=== PATIENT | female | born 1960 | race Caucasian/White ===

== ENCOUNTER 2016-08-18 06:02 | Day surgery (SDC) | payer BC, MEDICARE ==
--- NOTE | 2016-08-17 19:37 | HISTORY AND PHYSICAL ---
ADMITTED: 08/18/2016 HISTORY OF PRESENT ILLNESS: The patient is a 55-year-old female who presents with chief complaint of painful hammertoe deformities of her second, third, and fourth toe, left foot. States that it had progressively gotten worse. Says her diabetes is fairly managed and she is afraid that with these hammertoes, as they get progressive that she develops sores and does not want to develop any type of open ulcerations, which could lead to amputation. MEDICAL/SURGICAL HISTORY: Past medical history: Includes history of circulatory problems, insulin resistant diabetes, headaches, foot and leg cramps, hypertension and GERD. Surgical history: Many of note; bilateral left and right foot surgery carried out by myself; hernia repair. PRIMARY CARE PROVIDER: Blayne Mcintosh MD MEDICATIONS: 1. Alprazolam 2 mg tablet 1 by mouth daily. 2. Chlorthalidone 25 mg tablet 1 by mouth daily. 3. Duloxetine 30 mg capsule delayed-release 1 by mouth daily. 4. GaviLyte N 420 g oral solution 2 tablespoons by oral route daily. 5. Hydrochlorothiazide 25 mg tablet 1 by mouth daily. 6. Hydrocodone 5/acetaminophen 325 one q.6 hours p.r.n. pain. 7. Liothyronine 5 mcg tablets 1 by mouth daily. 8. Lovastatin 20 mg tablet 1 by mouth daily. 9. Metformin 1000 mg tablet 1 by mouth t.i.d. 10. Omeprazole 20 mg capsule delayed-release 1 by mouth daily. 11. Potassium chloride ER 10 mEq tablet 1 by mouth daily. 12. Spironolactone 100 mg tablet 1 by mouth daily. 13. Tramadol 50 mg tablet 1 by mouth t.i.d. for pain. ALLERGIES: 1. NO KNOWN DRUG OR FOOD ALLERGIES. SOCIAL HISTORY: She is disabled, with children. Does not smoke or drink. Employed for [employer]. FAMILY HISTORY: Diabetes maternal side. REVIEW OF SYSTEMS: Ten-point review of systems positive for insulin resistant diabetes, circulatory problems and psychosis of unknown nature. PHYSICAL EXAMINATION: GENERAL: The patient is alert and oriented x3. HEENT: PERRLA. Normocephalic. HEART: Regular rate and rhythm. Regular S1 and S2, no murmurs or gallops. LUNGS: Clear to auscultation. No wheezing, rhonchi, or rales. ABDOMEN: Normal tones. No palpable masses in all 4 quadrants. EXTREMITIES: Lower extremities/Vascular: DP and PT pulses are palpable. There is noted pain with palpation of the second, third, and fourth digit, left foot. There are noted contractures in the sagittal and transverse planes. She has difficulty with range of motion. Stance reveals a collapsed medial column and valgus heels. LAB/IMAGING: Imaging: Taken on an OrthoScanned weightbearing platform revealed contractures, both the sagittal and transverse planes. Also had a SensiLase report carried out and read by Dr. Prieto Willis, which revealed normal perfusion and good chance of wound healing from an arterial standpoint. That SensiLase test was done back in early 06/2016. IMPRESSION: 1. Hammertoe deformity, second, third, and fourth toe, left foot. PLAN: The patient is scheduled for outpatient surgery, [facility] for arthroplasties on day of surgery; 08/18/2016. There are no contraindications to surgery at this time.
[~2016-08-18] VITALS: Ht 167.6 cm; Wt 101.6 kg
[~2016-08-18 06:02] MED LIST: ALPRAZOLAM2 MG PO; ASPIRIN ADULT L81 M1 PO; CHLORTHALIDONE25 MG PO; CYMBALTA30 MG PO; FOLIC ACID1 MG PO; LIOTHYRONINE SO5 MCG PO; LOVASTATIN10 M1 PO; METFORMIN HCL1000 MG PO; MIRALAX EQUIVAL17 GM PO; MULTIPLE VITAMIN PO; OMEPRAZOLE20 M1 PO; PROBIOTI1 PO; VITAMIN B COMPLE1 PO; VITAMIN D-31000 UNIT PO
[2016-08-18] MEDS ORDERED: ULTRAM EQIVALEN50 MG PO (06:23)
[2016-08-18] MEDS ORDERED: KLOR-CON 1010 MEQ PO (06:23)
--- NOTE | 2016-08-18 06:49 | NUR ---
PATIENT ASSESSMENT AND MED/ALLERGY LIST COMPLETE. VITALS STABLE. BGL 159. IV STARTED IN L FOREARM WITH 1 ATTEMPT. LR INFUSING ON PUMP. EKG AND LABS OBTAINED. PREOP INSTRUCTIONS DISCUSSED. QUESTIONS ENCOURAGED AND ANSWERED BY RN. WILL CONTINUE TO MONITOR.
[2016-08-18] MEDS ORDERED: PERCOCET1 TA4 PO (08:57)
--- NOTE | 2016-08-18 08:58 | Provider's Discharge Care Plan ---
Problem, Goal, Plan Problem List 1. Other hammer toe(s) (acquired), left foot Goals: Improve function Instructions: Follow up as directed
--- NOTE | 2016-08-18 08:58 | Provider's Discharge Care Plan ---
Problem, Goal, Plan Problem List 1. Other hammer toe(s) (acquired), left foot Goals: Improve function Instructions: Follow up as directed
--- NOTE | 2016-08-18 09:05 | NUR ---
rec'd from OR; SPONT RESP. HOB AND FOB ELEVATED 30 DEGREES.L FOOT DSG= SCANT PINK DRAINAGE. FOOT ELEVATED ON 2 PILLOWS. SURGEON NOTIFIED OF DRAINAGE.
[2016-08-18] MEDS ORDERED: HYDROMORPHONE HC2 MG PO (09:06)
--- NOTE | 2016-08-18 09:20 | NUR ---
SLEEPINT QUIETLY. INSTRUCTED TO DB. CMS=GOOD. FSBS ON ADMIT TO PACU = 166. ANESTHESIA NOTIFIED; NO FURTHER ORDERS.
--- NOTE | 2016-08-18 09:38 | NUR ---
POST OP XRAYS BEING TAKEN; TOLERATED WELL.
--- NOTE | 2016-08-18 09:58 | NUR ---
PATIENT BACK FROM SURGERY. VITALS STABLE. OUTTER DRESSINGS CLEAN, DRY AND INTACT, WITH SCANT DRAINAGE ON INNER GAUZE. TOES PINK AND WARM. WILL CONTINUE TO MONITOR.
--- NOTE | 2016-08-18 10:46 | NUR ---
PATIENT TOLERATING PO INTAKE WITHOUT NAUSEA. DENIES PAIN AT THIS TIME. WILL CONTINUE TO MONITOR.
[2016-08-18 11:25] VITALS: BP 107/63
--- NOTE | 2016-08-18 11:49 | DIAGNOSTIC IMAGING REPORT ---
PROCEDURE: XR FOOT 3 VIEWS - LEFT INDICATION: POST-OP- IN PACU TECHNIQUE: Three views. COMPARISON: Left foot films 01/27/2011 FINDINGS: Post bunionectomy. Anatomic alignment. IMPRESSION: 1. Post bunionectomy. Anatomic alignment.
--- NOTE | 2016-08-18 12:00 | NUR ---
PATIENT DEPARTED SCU AT 1155. VITALS REMAIN STABLE. TOES PINK AND WARM, WITH FREE MOVEMENT. PATIENT STATES PAIN IS WELL CONTROLLED AT 3/10 PAIN. IV DISCONTINUED. POST OP SHOE APPLIED. DISCHARGE INSTRUCTIONS DISCUSSED. QUESTIONS ENCOURAGED AND ANSWERED BY RN.
--- NOTE | 2016-08-18 20:01 | OPERATIVE REPORT ---
DATE OF SURGERY: 08/18/2016 SURGEON: Mono Travis DPM PREOPERATIVE DIAGNOSIS: 1. Hammertoe deformity, second, third, and fourth digit, left foot POSTOPERATIVE DIAGNOSIS: 1. Hammertoe deformity, second, third, and fourth digit, left foot PROCEDURE PERFORMED: 1. Arthroplasties of the second, third, and fourth digit, left foot HEMOSTASIS: Achieved by pneumatic ankle tourniquet inflated 250 mmHg pressure. TOURNIQUET TIME: Total tourniquet time: Forty eight minutes. MATERIALS: 3-0 and 4-0 Polysorb, 4-0 Surgipro. INJECTABLES: Injected 20 mL of 0.5% bupivacaine plain. COMPLICATIONS: None. CONDITION: The patient tolerated anesthesia, procedure well. INDICATIONS: The patient is a 55-year-old female with the chief complaint of chronic and painful hammertoe deformities. States she gets calluses on the top of her toes and would like to have that addressed. States she is a diabetic and does not want to have any type of open ulcerations. She has taken a proactive approach. I did have her get a SensiLase prior to the procedure to ensure optimum healing from an arterial standpoint, which results were indicative of that fact. There are no contraindications to surgery at this time. SURGICAL TECHNIQUE: The patient was brought to the operating room, placed on operating room table in a supine position. At this time, a general anesthetic was administered and pneumatic tourniquet was then placed above the left ankle. Left lower extremity was prepped and draped in the normal sterile fashion. An intraoperative pause was carried out for positive identification, proper limb, consent form verified and confirmed, as well as administration of the 2 g of IV cefazolin were identified as being delivered. An Esmarch bandage was then utilized to exsanguinate the limb, tourniquet was then inflated. Attention was then directed to procedure #1. Arthroplasty, second digit, left foot: A linear incision was made extending from the midshaft of the proximal phalanx, extending distally across the DIPJ of the second digit. Skin hooks were then employed as the skin edges were then undermined from distal to proximal to the PIPJ. The long extensor tendon was then transected at this level and reflected proximally. The head of the intermediate phalanx was excised, contoured to a smooth edge with the hand-held rasp. The extensor tendon was then reflected distally back proximally to expose the proximal interphalangeal joint, collateral ligaments were released and the head of the proximal phalanx was excised. Contoured to a smooth edge. Area was flushed. Toe was then brought up to a rectus position in the sagittal and transverse plane with the long extensor tendon reapproximated in a figure-of- eight fashion at the DIPJ level. Subcutaneous reapproximated with the 4-0 Polysorb and skin edges were reapproximated in running fashion with 4-0 Surgipro. Attention was directed to procedure #2. Arthroplasty, third digit, left foot: Same procedure was carried out and procedure #1 was carried out in procedure #2. No additions, deletions. Attention was directed to procedure #3. Arthroplasty, fourth digit: At this time, a linear incision was made overlying midshaft of the proximal phalanx extending to midshaft of the intermediate phalanx. Skin hooks were employed with the skin edges undermined. Long extensor tendon was transected at the proximal interphalangeal joint. Collateral ligaments were released. Head of the proximal phalanx was then excised with the sagittal saw, contoured to a smooth edge. The area was flushed. Long extensor tendon was then reapproximated in a [id number] fashion with 3-0 Polysorb, subcutaneous with 4-0 Polysorb and skin edges were reapproximated in running fashion with 4-0 Surgipro. Toes were rectus, both sagittal and transverse planes digits 2, 3, and 4. The toes were then locally anesthetized. The tourniquet was released with reactive hyperemia and good digital perfusion to all digits. A light compressive dressing was applied. The patient tolerated anesthesia, procedure well and left the room with vital signs stable. While in recovery, written explicit instructions dispensed. She is to utilize a fracture shoe. Prognosis is guarded. She will be discharged home in stable condition.
[2016-10-19] MEDS ORDERED: JARDIANCE25 MG PO (14:14)
== END 2016-08-18 11:55 | disposition home or self-care (01) ==
LOC: OR SRH 06:02 → SCU SRH 06:09 → OR SRH 07:30
PROVIDERS: Podiatrist
PROC: 0QBR0ZZ Excision of Left Toe Phalanx, Open Approach (ICD-10-PCS; principal; 2016-08-18 07:30)
DX: M20.42 Other hammer toe(s) (acquired), left foot (principal); E11.9 Type 2 diabetes mellitus without complications; Z79.84 Long term (current) use of oral hypoglycemic drugs; I10 Essential (primary) hypertension

== ENCOUNTER 2016-10-20 06:13 | Day surgery (SDC) | payer BC, MEDICARE ==
--- NOTE | 2016-10-19 08:54 | HISTORY AND PHYSICAL ---
ADMITTED: 10/20/2016 HISTORY OF PRESENT ILLNESS: The patient is a 56-year-old female with a chief complaint of painful hammertoe deformities of her right foot. She successfully carried out arthroplasties on her left foot on 08/18/2016 without complications. She has elected to proceed with surgical of her right foot. MEDICAL/SURGICAL HISTORY: Her past medical history includes a history of circulatory problems, insulin resistant diabetes, headaches, foot and leg cramps, hypertension, and GERD. Surgical history: Bilateral left and right foot surgery carried out by myself with the recent one on 08/18/2016. Hernia repair. PRIMARY CARE PHYSICIAN: Blayne Mcintosh MD. MEDICATIONS: 1. Alprazolam 2 mg tab 1 by mouth daily. 2. Chlorthalidone 25 mg tablet 1 by mouth daily. 3. Duloxetine 30 mg delayed-release tablet 1 by mouth daily. 4. GaviLyte-N 420 gram oral solution 2 tablespoons by oral route daily. 5. Hydrochlorothiazide 25 mg tab 1 by mouth daily. 6. Hydrocodone 5/acetaminophen 325 one q.6 hours p.r.n. pain. 7. Liothyronine 5 mcg tablets 1 by mouth daily. 8. Lovastatin 20 mg tablet 1 by mouth daily. 9. Metformin 1000 mg tab 1 by mouth t.i.d. 10. Omeprazole 20 mg tablet delayed-release 1 by mouth daily. 11. Potassium chloride ER 10 mEq 1 by mouth daily. 12. Spironolactone 100 mg tablet 1 by mouth daily. 13. Tramadol 50 mg tab 1 by mouth daily. ALLERGIES: 1. NO KNOWN DRUG OR FOOD ALLERGIES. SOCIAL HISTORY: She is disabled. with 2 children, does not smoke or drink. Employed for [employer]. FAMILY HISTORY: Diabetes maternal side. REVIEW OF SYSTEMS: A 10-point review of systems positive for insulin resistant diabetes, circular problems, and psychoses of unknown nature. PHYSICAL EXAMINATION: GENERAL: The patient is alert, oriented x3. HEENT: PERRLA. Normocephalic. HEART: Regular rate and rhythm. Regular S1 and S2. No murmurs, or gallops. LUNGS: Clear to auscultation. No wheezing, rhonchi, or rales. ABDOMEN: Normal tones, no palpable masses in all 5 quadrants. EXTREMITIES: Lower extremity, DP and PT pulses are palpable. Skin texture and turgor within normal limits. Digits 2, 3, and 4 the right foot are contracted in both the sagittal and transverse planes. They are pliable and easily reduced. Stance reveals a slight collapse of the medial column. LAB/IMAGING: Imaging in the office on ortho scan weightbearing platform revealed contractures at the distal interphalangeal joint and proximal idiopathic thrombocytopenia purpura respectively of digits 2, 3, and 4, right foot. SensiLase report carried out and read by Dr. Savage back in 06/2016 revealed that there is a good perfusion and good chance of healing from an arterial standpoint. IMPRESSION: 1. Hammertoe deformity, second, third, and fourth digit, right foot. PLAN: The patient is scheduled for an outpatient procedure consisting of arthroplasties of digits 2, 3, and 4, right. There are no contraindications to surgery. Surgery is scheduled on an outpatient basis at [facility] on 10/20/2016.
[~2016-10-20] VITALS: Ht 167.6 cm; Wt 99.0 kg
[~2016-10-20 06:13] MED LIST changes: +HYDROMORPHONE HC2 MG PO; +JARDIANCE25 MG PO; +KLOR-CON 1010 MEQ PO; +PERCOCET1 TA4 PO; +ULTRAM EQIVALEN50 MG PO
[2016-10-20] MEDS ORDERED: PERCOCET1 TA4 PO (08:58)
--- NOTE | 2016-10-20 08:59 | Provider's Discharge Care Plan ---
Problem, Goal, Plan Problem List 1. Other hammer toe(s) (acquired), right foot Goals: Improve function Instructions: Follow up as directed
--- NOTE | 2016-10-20 08:59 | Provider's Discharge Care Plan ---
Problem, Goal, Plan Problem List 1. Other hammer toe(s) (acquired), right foot Goals: Improve function Instructions: Follow up as directed
--- NOTE | 2016-10-20 09:52 | OPERATIVE REPORT ---
DATE OF SURGERY: 10/20/2016 SURGEON: Mono Travis DPM PREOPERATIVE DIAGNOSES: 1. Hammertoe deformities, second, third, and fourth digit, right foot POSTOPERATIVE DIAGNOSIS: 1. Hammertoe deformities, second, third, and fourth digit, right foot PROCEDURE PERFORMED: 1. Arthroplasty, second, third, and fourth toes, right foot ANESTHESIA: LMA and local, local being 0.5% bupivacaine plain, total aggregate 10 mL. HEMOSTASIS: Achieved by pneumatic ankle tourniquet inflated to 250 mmHg pressure. TOURNIQUET TIME: 38 minutes. MATERIALS: 3-0 Polysorb and 4-0 Surgipro. COMPLICATIONS: None. CONDITION: The patient tolerated anesthesia and procedure well. INDICATIONS: The patient is a 56-year-old female with a chief complaint of chronic painful hammertoe deformities of right foot. Successfully carried out hammertoe repair of her left foot 2 months ago. We are doing this prophylactically as she is a diabetic and has a history of calluses. She has progressive numbness and neuropathy. Therefore, we were preemptively doing prophylactic procedures to help address the hammertoe contractures. She is well aware of the planned procedure. No contraindications to surgery at this time. SURGICAL TECHNIQUE: The patient was brought to the operating room and placed on the table in the supine position. At this time, general anesthetic was administered. A pneumatic tourniquet was then placed above the right ankle. The right lower extremity was prepped and draped in normal sterile fashion. At this time, an intraoperative pause was carried out for positive identification, proper limb, and consent form verified and confirmed, as well as preoperative antibiotic of 2 grams of cefazolin. The Esmarch bandage was then utilized to exsanguinate the limb, the tourniquet was then inflated. Attention was directed to procedure #1. PROCEDURE #1: ARTHROPLASTY, SECOND DIGIT, RIGHT FOOT: A linear incision was made from the midshaft of the proximal phalanx and second toe extending distally across the DIPJ. Skin edge were undermined medial and laterally. Skin hooks were then placed. The long extensor tendon was transected at the distal interphalangeal joint and reflected proximally. The head of the intermediate phalanx was excised via sagittal saw, as well as the head of the proximal phalanx was excised. Care was taken to make sure the collateral ligaments were released. The bone was removed, contoured to a smooth edge. The area was flushed. The long extensor tendon was then reapproximated and coapted with 3-0 Polysorb in a [id number] fashion. The skin edges were then reapproximated in a running fashion with 4-0 Polysorb. Attention was then directed to procedure #2 arthroplasty, third digit. The same procedure that was carried out in procedure #1 was carried out in procedure #2. There were no additions, deletions or complications. Attention was then directed to procedure #3. PROCEDURE #3: ARTHROPLASTY, FOURTH DIGIT, RIGHT FOOT: The same procedure carried out 1 and 2 was carried out in procedure #3. No additions, deletions or complications. The toes were locally anesthetized as aforementioned. The tourniquet was released with reactive hyperemia and good digital perfusion. Light compressive dressing was applied. The patient tolerated anesthesia and procedure well and left the room with vital signs stable. While in recovery, a blood sugar was taken at 9:05 and it was 165. Preoperatively, it was at 191 and a potassium level of 2.8. Postoperative x-rays ordered. The patient tolerated the procedure without complication. Prognosis is guarded. She will be discharged home in stable condition with the utilization of a preoperative shoe.
--- NOTE | 2016-10-20 10:04 | DIAGNOSTIC IMAGING REPORT ---
PROCEDURE: XR FOOT 3 VIEWS - RIGHT INDICATION: POST-OP- IN PACU TECHNIQUE: Three views. COMPARISON: Right foot x-ray 06/02/2011. FINDINGS: Interval resection of the distal aspect of the second, third and fourth proximal and middle phalanges. Plantar calcaneal spur. There is mild soft tissue swelling of the dorsum of the foot. IMPRESSION: 1. Postsurgical changes of the second, third and fourth toes.
[2016-10-20 12:13] VITALS: BP 133/79
== END 2016-10-20 11:58 | disposition home or self-care (01) ==
LOC: SDC SRH 06:13 → SCU SRH 06:14 → SDC SRH 07:30 → OR SRH 07:30 → SDC SRH 11:58
PROVIDERS: Podiatrist
PROC: 0QBQ0ZZ Excision of Right Toe Phalanx, Open Approach (ICD-10-PCS; principal; 2016-10-20 07:30)
DX: M20.41 Other hammer toe(s) (acquired), right foot (principal); E11.9 Type 2 diabetes mellitus without complications; Z79.84 Long term (current) use of oral hypoglycemic drugs; I10 Essential (primary) hypertension

== ENCOUNTER → 2016-12-01 | Outpatient (CLI) | payer BC, MEDICARE | LOC: LAB SRH 16:13 | DX: R53.83 Other fatigue (principal); M79.7 Fibromyalgia; E03.9 Hypothyroidism, unspecified | CPT/HCPCS: 90047; 90074; 93140; 99777 ==